=== PATIENT | male | born 1955 | race Caucasian/White ===

== ENCOUNTER → 2017-06-20 08:51 | Outpatient (CLI) | payer OTHER, SELFPAY ==
[2017-06-20 10:10] LABS: Absolute Lymphocyte Count 1.41 X10^3/ul (0.83-4.51); Basophil# 0.04 X10^3/uL; Basophil% 0.7 % (0-1); Color, Urine Yellow (Yellow); Eosinophil# 0.54 X10^3/uL; Eosinophils% 9.8 % (0-5); Glucose, Dipstick Normal (Normal); Hematocrit 48.5 % (40-54); Hemoglobin 16.2 g/dl (13.0-16.5); Ketone-Dipstick Negative (Negative); Leukocyte Esterase-Dipstick 25 /ul (Negative); Lymphocyte # 1.41 X10^3/ul (4.0); Lymphocyte % 25.5 % (19-41); Mean Corp Hgb Conc 33.4 g/gl (32-36); Mean Corpuscular Hgb 29.8 pg (27.0-32.0); Mean Corpuscular Volume 89.3 fL (80-94); Mean Platelet Vol. 11.3 fl (6.2-12.0); Monocyte# 0.57 X10^3/uL; Monocyte% 10.3 % (0-10); Neutrophil # 2.97 X10^3/uL (2.7-7.7); Neutrophil % 53.7 % (47-70); Nitrite-Dipstick Negative (Negative); Occult Blood-Urine Negative /ul (Negative); Platelet Count 174 K/mm3 (150-450); Protein-Dipstick Negative (Negative); RBC Distribution Width CV 13.1 % (11.6-14.6); RBC Distribution Width SD 42.6 fl (35.1-43.9); Red Blood Count 5.43 M/mm3 (4.6-6.2); Urine Bilirubin Dipstick Negative (Negative); Urine Clarity Clear (Clear); Urine Urobilinogen Normal (Normal); White Blood Count 5.5 K/mm3 (4.4-11.0)
[2017-06-20 10:11] LABS: POSITIVE COUNT NO; POSITIVE DIFFERENTIAL NO; POSITIVE MORPHOLOGY NO
[2017-06-20 10:19] LABS: Erythrocyte Sedimentation Rate 2 mm/hr (0-20)
[2017-06-20 10:39] LABS: ALB/GLOB Ratio 1.2 RATIO (0.9-2.4); AST(SGOT) 20 U/L (15-37); Alanine Aminotransfer ALT/SGPT 43 U/L (16-61); Alkaline Phosphatase 84 U/L (45-117); Anion Gap 6 (5-15); BUN 13 mg/dL (7-18); CRP < 2.90 mg/L (0.0-3.0); Calcium,Total 8.6 mg/dL (8.5-10.1); Chloride 105 mmol/L (98-107); Cholesterol 156 mg/dL (200); EST Glomerular Filtration Rate 81 mL/min (>60); Est Glom Filt Rate - Afr Amer 98 mL/min (>60); Globulin 3.4 g/dL (2.2-4.2); Glucose 82 mg/dL (74-106); High Density Lipoprotein 36 mg/dL; PSA,Total - Annual Screen 2.39 ng/mL (0.00-4.00); Potassium 4.1 mmol/L (3.5-5.1); Protein, Total 7.4 g/dL (6.4-8.2); Sodium Level 140 mmol/L (136-145); Thyroid Stim Hormone (TSH) 1.12 uIU/mL (0.358-3.74); Triglycerides 115 mg/dL; Very Low Density Lipoprotein 23 mg/dL (5-40)
== END ==
PROVIDERS: Visit Provider Internal Medicine Rheumatology
DX: Z00.00 Encounter for general adult medical examination without abnormal findings (principal); E03.9 Hypothyroidism, unspecified; E78.00 Pure hypercholesterolemia, unspecified; M06.00 Rheumatoid arthritis without rheumatoid factor, unspecified site; Z12.5 Encounter for screening for malignant neoplasm of prostate
CPT/HCPCS: 36415; 80053; 80061; 81002; 84153; 84443; 85025; 85652; 86140; G0103

== ENCOUNTER → 2018-04-17 08:47 | Outpatient (CLI) | payer OTHER, SELFPAY ==
[2018-04-17 10:55] LABS: AST(SGOT) 23 U/L (15-37); Alanine Aminotransfer ALT/SGPT 41 U/L (16-61); Albumin, Serum 4.1 g/dL (3.2-5.0); Alkaline Phosphatase 78 U/L (45-117); Bilirubin, Direct 0.17 mg/dL (0.00-0.30); Cholesterol 177 mg/dL (200); Globulin 3.4 g/dL (2.2-4.2); High Density Lipoprotein 40 mg/dL; Protein, Total 7.5 g/dL (6.4-8.2); Thyroid Stim Hormone (TSH) 1.31 uIU/mL (0.358-3.74); Triglycerides 117 mg/dL; Very Low Density Lipoprotein 23 mg/dL (5-40)
--- OUTSIDE RECORDS SUMMARY | 2018-06-03 02:09 | XMS RPT_ITS ---
:1955 Author Organization [facility] Care Team Providers Name Role Phone ERNESTO GARCÍA Attending Unavailable ALIX THORNE Primary Care Unavailable Alix Thorne Attending Unavailable Alix Thorne Referring Unavailable Alix Thorne Primary Care Unavailable ERNESTO GARCÍA Attending Unavailable ERNESTO GARCÍA Referring Unavailable Alix Thorne Primary Care Unavailable PROBLEMS PROBLEMS No Problem Records FoundPROCEDURES PROCEDURES No Procedure Records FoundRESULTS RESULTS LIVER PROFILE Collected: 04/17/2018 Status: F Source: DEEPALI 9:04 AM [facility] REPOSITORY TYPE CODE TESTS RESULT OUT OF RANGE REFERENCE UNITS LAB L501.1500 6.4-8.2 g/dL Normal T PROT 7.5 LAB L501.1800 3.2-5.0 g/dL Normal ALB 4.1 LAB L501.1950 2.2-4.2 g/dL Normal GLOB 3.4 LAB L501.4100 15-37 U/L Normal AST 23 LAB L501.4305 45-117 U/L Normal ALK P 78 LAB L501.4405 16-61 U/L Normal ALT 41 LAB L501.4600 0.20-1.00 mg/dL Normal T BILI 0.80 LAB L501.4700 0.00-0.30 mg/dL Normal D BILI 0.17 Performed By: #### L500.3400, L500.4100, L501.9520 #### [facility] [address] [place], [address] LIPID PROFILE Collected: 04/17/2018 Status: F Source: DEEPALI 9:04 AM [facility] REPOSITORY TYPE CODE TESTS RESULT OUT OF RANGE REFERENCE UNITS LAB L501.4900 200 mg/dL Normal CHOL 177 Result Comment: <200 mg/dL Desirable 200-240 mg/dL Borderline >240 mg/dL High Risk LAB L501.5000 mg/dL Normal TRIG 117 Result Comment: The drugs N-Acetylcysteine and Metamizole may falsely depress this assay. Serum Triglycerides Reference Interval Normal <150 mg/dL Borderline high 150 - 199 mg/dL High 200 - 499 mg/dL Very High > or = 500 mg/dL LAB L501.6400 mg/dL Normal HDL 40 Result Comment: The drugs N-Acetylcysteine and Metamizole may falsely depress this assay. Reference Range HDL <40 mg/dL Low HDL Cholesterol HDL >or= 60 mg/dL High HDL Cholesterol LAB L501.6500 0-130 mg/dL Normal LDL 114 LAB L501.6600 5-40 mg/dL Normal VLDL 23 Performed By: #### L500.3400, L500.4100, L501.9520 #### [facility] [address] [place], [place], [id number] THYROID STIM HORMONE Collected: 04/17/2018 Status: F Source: DEEPALI (TSH) 9:04 AM [facility] REPOSITORY TYPE CODE TESTS RESULT OUT OF RANGE REFERENCE UNITS LAB L501.9520 0.358-3.74 uIU/mL Normal TSH 1.31 Performed By: #### L500.3400, L500.4100, L501.9520 #### [facility] [address] [place], [place], [address] CBC W/DIFF, AUTOMATED Collected: 06/20/2017 Status: F Source: DEEPALI 8:59 AM [facility] REPOSITORY TYPE CODE TESTS RESULT OUT OF RANGE REFERENCE UNITS LAB L100.1000 4.4-11.0 K/mm3 Normal WBC 5.5 LAB L100.1200 4.6-6.2 M/mm3 Normal RBC 5.43 LAB L100.1300 13.0-16.5 g/dl Normal HGB 16.2 LAB L100.1400 40-54 % Normal HCT 48.5 LAB L100.1500 80-94 fL Normal MCV 89.3 LAB L100.1600 27.0-32.0 pg Normal MCH 29.8 LAB L100.1700 32-36 g/gl Normal MCHC 33.4 LAB L100.1810 11.6-14.6 % Normal RDW CV 13.1 LAB L100.1820 35.1-43.9 fl Normal RDW SD 42.6 LAB L100.1900 150-450 K/mm3 Normal PLT 174 LAB L100.2000 6.2-12.0 fl Normal MPV 11.3 LAB L100.2100 47-70 % Normal NEUT% 53.7 LAB L100.2200 19-41 % Normal LY% 25.5 LAB L100.2300 0-10 % High MONO% 10.3 LAB L100.2400 0-5 % High EO% 9.8 LAB L100.2500 0-1 % Normal BASO% 0.7 LAB L100.2550 0.0-0.9 % Normal IM GRAN % 0.000 Result Comment: IG% - Immature Granulocytes (promyelocytes, myelocytes and metamyelocytes) > 1% indicates that a LEFT SHIFT is Present. LAB L100.2620 2.0-7.7 X10 3/uL Normal Absolute Neut 3.0 LAB L100.2720 0.83-4.51 X10 3/ul Normal Absolute Lymph 1.41 Performed By: #### L100.0100, L101.9900 #### [facility] [address] [place], [place], [id number] ERYTHROCYTE SED RATE Collected: 06/20/2017 Status: F Source: DEEPALI 8:59 AM [facility] REPOSITORY TYPE CODE TESTS RESULT OUT OF RANGE REFERENCE UNITS LAB L102.0000 0-20 mm/hr Normal SED RATE 2 Performed By: #### L100.0100, L101.9900 #### [facility] [address] [place], [address] URINALYSIS, ROUTINE Collected: 06/20/2017 Status: F Source: DEEPALI (DIPSTICK) 8:59 AM [facility] REPOSITORY Order Comment: How was Urine Obtained? CLEAN CATCH TYPE CODE TESTS RESULT OUT OF RANGE REFERENCE UNITS LAB L400.3000 Yellow COLOR Normal Yellow LAB L400.3050 Clear Normal CLARITY Clear LAB L400.3200 Normal mg/dl Normal GLUCOSE, UR Normal LAB L400.3300 Negative mg/dL Normal BILIRUBIN URINE Negative LAB L400.3400 Negative mg/dl Normal KETONE UR Negative LAB L400.3465 1.002-1.030 Normal SP.GR. DIPSTX 1.010 LAB L400.3550 5.0 - 8.0 pH UR Normal 6.0 LAB L400.3600 Negative mg/dl PROT Normal DIPSTX Negative LAB L400.3700 Normal mg/dl Normal UROBILI Normal LAB L400.3750 Negative Normal NITRITE UR Negative LAB L400.3780 Negative /ul Normal OCCULT BLOOD-UR Negative LAB L400.3800 Negative /ul High LEUK 25 ESTERASE Performed By: #### L400.2010 #### [facility] [address] [place], [address] COMPREHENSIVE METABOLIC Collected: 06/20/2017 Status: F Source: DEEPALI PROFIL 8:59 AM [facility] REPOSITORY TYPE CODE TESTS RESULT OUT OF RANGE REFERENCE UNITS LAB L501.0100 74-106 mg/dL Normal GLU 82 Result Comment: Please note revised GLUCOSE reference range effective 2017. LAB L501.1000 7-18 mg/dL Normal BUN 13 LAB L501.1100 0.70-1.30 mg/dL Normal CREAT,SERUM 1.00 Result Comment: The validity of the calculated GFR AND GFRAA in patients over 70 years has not been determined. Clinical correlation is essential. LAB L501.1110 >60 mL/min Normal EST GFR 81 Result Comment: Non- GFR Calc LAB L501.1115 >60 mL/min Normal EST GFR - AA 98 Result Comment: GFR Calc LAB L501.1300 10-20 RATIO Normal BUN/CRE 13.0 LAB L501.1500 6.4-8.2 g/dL T Normal PROT 7.4 LAB L501.1800 3.2-5.0 g/dL Normal ALB 4.0 LAB L501.1950 2.2-4.2 g/dL Normal GLOB 3.4 LAB L501.2000 0.9-2.4 RATIO Normal A/G 1.2 LAB L501.2200 8.5-10.1 mg/dL CA Normal 8.6 LAB L501.4100 15-37 U/L Normal AST 20 LAB L501.4305 45-117 U/L Normal ALK P 84 LAB L501.4405 16-61 U/L Normal ALT 43 Result Comment: Please note revised ALT reference range effective 2017. LAB L501.4600 0.20-1.00 mg/dL Normal T BILI 0.60 LAB L501.5300 136-145 mmol/L Normal NA 140 LAB L501.5600 3.5-5.1 mmol/L Normal K 4.1 LAB L501.5900 98-107 mmol/L Normal CL 105 LAB L501.6100 21.0-32.0 mmol/L Normal CO2 29.0 LAB L501.6200 5-15 Normal GAP 6 Performed By: #### L500.4050, L500.4100, L501.6710, L501.9520, L501.9910 #### [facility] [address] [place], [address] LIPID PROFILE Collected: 06/20/2017 Status: F Source: BARROW 8:59 AM [facility] REPOSITORY TYPE CODE TESTS RESULT OUT OF RANGE REFERENCE UNITS LAB L501.4900 200 mg/dL Normal CHOL 156 Result Comment: <200 mg/dL Desirable 200-240 mg/dL Borderline >240 mg/dL High Risk LAB L501.5000 mg/dL Normal TRIG 115 Result Comment: The drugs N-Acetylcysteine and Metamizole may falsely depress this assay. Serum Triglycerides Reference Interval Normal <150 mg/dL Borderline high 150 - 199 mg/dL High 200 - 499 mg/dL Very High > or = 500 mg/dL LAB L501.6400 mg/dL Low HDL 36 Result Comment: The drugs N-Acetylcysteine and Metamizole may falsely depress this assay. Reference Range HDL <40 mg/dL Low HDL Cholesterol HDL >or= 60 mg/dL High HDL Cholesterol LAB L501.6500 0-130 mg/dL Normal LDL 97 LAB L501.6600 5-40 mg/dL Normal VLDL 23 Performed By: #### L500.4050, L500.4100, L501.6710, L501.9520, L501.9910 #### [facility] [address] [place], [address] CRP Collected: 06/20/2017 Status: F Source: DEEPALI 8:59 AM [facility] REPOSITORY TYPE CODE TESTS RESULT OUT OF RANGE REFERENCE UNITS LAB L501.6710 0.0-3.0 mg/L Normal < 2.90 C-REACTIVE PROT Result Comment: C-Reactive Protein (CRP) provides useful information for the diagnosis, therapy and monitoring of inflammatory processes and associated diseases. For the evaluation of Relative Risk for Cardiovascular Disease, a High Sensitivity CRP (HSCRP) should be ordered. Performed By: #### L500.4050, L500.4100, L501.6710, L501.9520, L501.9910 #### [facility] [address] [place], [place], [id number] THYROID STIM HORMONE Collected: 06/20/2017 Status: F Source: DEEPALI (TSH) 8:59 AM [facility] REPOSITORY TYPE CODE TESTS RESULT OUT OF RANGE REFERENCE UNITS LAB L501.9520 0.358-3.74 uIU/mL Normal TSH 1.12 Performed By: #### L500.4050, L500.4100, L501.6710, L501.9520, L501.9910 #### [facility] [address] [place], [place], [address] PSA,TOTAL - ANNUAL Collected: 06/20/2017 Status: F Source: DEEPALI SCREEN 8:59 AM [facility] REPOSITORY TYPE CODE TESTS RESULT OUT OF RANGE REFERENCE UNITS LAB L501.9910 0.00-4.00 ng/mL Normal PSA,TOT 2.39 SCREEN Result Comment: This test was performed using the TPSA assay method for the [employer] chemistry system. Values obtained with different assay methods cannot be used interchangably. When changing PSA assays in the course of monitoring a patient, additional sequential testing should be carried out to confirm baseline values. Performed By: #### L500.4050, L500.4100, L501.6710, L501.9520, L501.9910 #### [facility] [address] [place], [address] ALLERGIES ALLERGIES DATE TYPE / CODE NAME / CODE REACTION SEVERITY SOURCE 06/06/2016 Drug No Known Unknown [facility] Allergy/416 Allergies/L41408 Hospital 916456(SNOM 0388(RXNORM) Repository ED CT) Drug NO KNOWN [facility] Class/08162 ALLERGIES Repository 1003(SNOMED CT) ENCOUNTERS ENCOUNTERS ADMIT/DISCHARGE ACCOUNT NUMBER ADMITTING ENCOUNTER LOCATION SOURCE CLASS 04/17/2018 [id number] Ambulatory General acute hospital ding:MTLAB Repository 02/07/2018/02/08/20 [id number] Ambulatory Building:[place] [address] [address] [address] R Repository 06/20/2017 [id number] Ambulatory General acute hospital ding:MTLAB Repository PAYERS PAYERS ENCOUNTER GUARANTOR PAYER SUBSCRIBER SOURCE 04/17/2018 NOELLE Oliva [id number] Primary NOELEL Randall [facility] Insurance:MEDICAL STENTZDOB: [address] [id number] Hospital [address]Pgs: (330) Number: Repository [phone] () [id number] Date:2356-79-30[address] [address]NK: 04/17/2018 Secondary NOT GIVENUNK [place] Insurance:SELF PAY [facility] Number: Effective Repository Date:2018-04-17 02/07/2018 NOELLE STENTZDOB: Primary NOELLE STENTZDOB: [facility] [id number] W Insurance:[facility] [id number] Three Repository [address] Number: [address] [place] [address] [id number] [address] [place] [id number]: [phone]) Date:3335-71-12[address] [address]Zta: () [address], [place] [phone] () [phone]: 06/20/2017 Noelle DumontzJudson Primary Noelle Randall [address] Insurance:MEDICAL StentzDOB: [facility] [address]Nwk: [facility] [id number] Hospital [phone] Number: Repository -9 () [id number] Date:3896-01-98FR [address] [place] [phone]: 06/20/2017 Secondary NOT GIVENNICOLE [place] Insurance:SELF PAY [facility] Number: Effective Repository Date:2017-06-20
== END ==
PROVIDERS: Referring Provider Family Medicine; Visit Provider Family Medicine
DX: E78.00 Pure hypercholesterolemia, unspecified (principal); E03.9 Hypothyroidism, unspecified
CPT/HCPCS: 36415; 80061; 80076; 84443

== ENCOUNTER → 2018-07-31 08:50 | Outpatient (CLI) | payer OTHER, SELFPAY ==
[2018-07-31 09:58] LABS: Color, Urine Yellow (Yellow); Glucose, Dipstick Normal (Normal); Ketone-Dipstick Negative (Negative); Leukocyte Esterase-Dipstick Negative /ul (Negative); Nitrite-Dipstick Negative (Negative); Occult Blood-Urine Negative /ul (Negative); Protein-Dipstick Negative (Negative); Urine Bilirubin Dipstick Negative (Negative); Urine Clarity Clear (Clear); Urine Urobilinogen Normal (Normal); Urine pH 6.5 (5.0 - 8.0)
[2018-07-31 10:12] LABS: Absolute Lymphocyte Count 1.33 X10^3/ul (0.83-4.51); Basophil# 0.03 X10^3/uL; Basophil% 0.5 % (0-1); Eosinophil# 0.39 X10^3/uL; Eosinophils% 7.1 % (0-5); Hematocrit 47.2 % (40-54); Hemoglobin 15.7 g/dl (13.0-16.5); Lymphocyte # 1.33 X10^3/ul (4.0); Lymphocyte % 24.1 % (19-41); Mean Corp Hgb Conc 33.3 g/gl (32-36); Mean Corpuscular Volume 90.1 fL (80-94); Mean Platelet Vol. 10.7 fl (6.2-12.0); Monocyte# 0.75 X10^3/uL; Monocyte% 13.6 % (0-10); Neutrophil # 3.02 X10^3/uL (2.7-7.7); Neutrophil % 54.7 % (47-70); Platelet Count 180 K/mm3 (150-450); RBC Distribution Width CV 12.8 % (11.6-14.6); RBC Distribution Width SD 41.7 fl (35.1-43.9); Red Blood Count 5.24 M/mm3 (4.6-6.2); White Blood Count 5.5 K/mm3 (4.4-11.0)
[2018-07-31 10:18] LABS: POSITIVE COUNT NO; POSITIVE DIFFERENTIAL NO; POSITIVE MORPHOLOGY NO
[2018-07-31 10:30] LABS: ALB/GLOB Ratio 1.2 RATIO (0.9-2.4); AST(SGOT) 24 U/L (15-37); Alanine Aminotransfer ALT/SGPT 39 U/L (16-61); Albumin, Serum 3.9 g/dL (3.2-5.0); Alkaline Phosphatase 68 U/L (45-117); Anion Gap 3 (5-15); BUN 13 mg/dL (7-18); BUN/Creat Ratio 13.3 RATIO (10-20); Calcium,Total 8.2 mg/dL (8.5-10.1); Chloride 108 mmol/L (98-107); Cholesterol 181 mg/dL (200); Creatinine, Serum 0.98 mg/dL (0.70-1.30); EST Glomerular Filtration Rate 83 mL/min (>60); Est Glom Filt Rate - Afr Amer 100 mL/min (>60); Globulin 3.2 g/dL (2.2-4.2); Glucose 76 mg/dL (74-106); High Density Lipoprotein 39 mg/dL; PSA,Total - Annual Screen 2.11 ng/mL (0.00-4.00); Potassium 3.9 mmol/L (3.5-5.1); Protein, Total 7.1 g/dL (6.4-8.2); Sodium Level 141 mmol/L (136-145); Thyroid Stim Hormone (TSH) 0.78 uIU/mL (0.358-3.74); Triglycerides 86 mg/dL; Very Low Density Lipoprotein 17 mg/dL (5-40)
== END ==
PROVIDERS: Referring Provider Family Medicine; Visit Provider Family Medicine
DX: Z00.00 Encounter for general adult medical examination without abnormal findings (principal); E78.00 Pure hypercholesterolemia, unspecified; E03.9 Hypothyroidism, unspecified; Z12.5 Encounter for screening for malignant neoplasm of prostate
CPT/HCPCS: 36415; 80053; 80061; 81002; 84153; 84443; 85025; G0103

== ENCOUNTER → 2019-01-30 08:40 | Outpatient (CLI) | payer OTHER, SELFPAY ==
[2016-06-06 19:52] VITALS: BMI 29.6
[2019-01-30 10:21] LABS: AST(SGOT) 23 U/L (15-37); Alanine Aminotransfer ALT/SGPT 42 U/L (16-61); Albumin, Serum 3.9 g/dL (3.2-5.0); Alkaline Phosphatase 71 U/L (45-117); Bilirubin, Direct 0.18 mg/dL (0.00-0.30); Cholesterol 203 mg/dL (200); Globulin 3.4 g/dL (2.2-4.2); High Density Lipoprotein 42 mg/dL; Protein, Total 7.3 g/dL (6.4-8.2); Thyroid Stim Hormone (TSH) 1.45 uIU/mL (0.358-3.74); Triglycerides 130 mg/dL; Very Low Density Lipoprotein 26 mg/dL (5-40)
== END ==
PROVIDERS: Referring Provider Family Medicine; Visit Provider Family Medicine
DX: E03.9 Hypothyroidism, unspecified (principal); E78.00 Pure hypercholesterolemia, unspecified
CPT/HCPCS: 36415; 80061; 80076; 84443

== ENCOUNTER → 2019-12-28 07:24 | Outpatient (CLI) | payer OTHER, SELFPAY ==
[2016-06-06 19:52] VITALS: BMI 29.6
[2019-12-28 08:17] LABS: Absolute Lymphocyte Count 1.58 X10^3/uL (0.83-4.51); Absolute Neutrophil Count 2.7 X10^3/uL (2.0-7.7); Basophil# 0.05 X10^3/uL; Basophil% 0.9 % (0-1); Eosinophil# 0.27 X10^3/uL; Hematocrit 48.8 % (40-54); Hemoglobin 16.4 g/dL (13.0-16.5); Lymphocyte # 1.58 X10^3/ul (4.0); Lymphocyte % 29.5 % (19-41); Mean Corp Hgb Conc 33.6 g/dL (32-36); Mean Corpuscular Volume 89.2 fL (80-94); Monocyte# 0.74 X10^3/uL; Monocyte% 13.8 % (0-10); NRBC Flagged by Analyzer 0 % (0-5); Neutrophil % 50.4 % (47-70); Platelet Count 197 K/mm3 (150-450); RBC Distribution Width CV 12.4 % (11.6-14.6); RBC Distribution Width SD 40.1 fl (35.1-43.9); Red Blood Count 5.47 M/mm3 (4.6-6.2); White Blood Count 5.4 K/mm3 (4.4-11.0)
[2019-12-28 08:55] LABS: AST(SGOT) 23 U/L (15-37); Alanine Aminotransfer ALT/SGPT 37 U/L (16-61); Alkaline Phosphatase 71 U/L (45-117); Bilirubin, Direct 0.22 mg/dL (0.00-0.30); Cholesterol 186 mg/dL (200); Globulin 3.6 g/dL (2.2-4.2); High Density Lipoprotein 36 mg/dL; PSA,Total - Annual Screen 2.71 ng/mL (0.00-4.00); Protein, Total 7.6 g/dL (6.4-8.2); Thyroid Stim Hormone (TSH) 1.78 uIU/mL (0.358-3.74); Triglycerides 143 mg/dL; Very Low Density Lipoprotein 29 mg/dL (5-40)
== END ==
PROVIDERS: Referring Provider Family Medicine; Visit Provider Family Medicine
DX: Z00.00 Encounter for general adult medical examination without abnormal findings (principal); E03.9 Hypothyroidism, unspecified; Z12.5 Encounter for screening for malignant neoplasm of prostate; E78.00 Pure hypercholesterolemia, unspecified
CPT/HCPCS: 36415; 80061; 80076; 84153; 84443; 85025; G0103

== ENCOUNTER → 2020-07-19 07:14 | Outpatient (CLI) | payer OTHER, SELFPAY ==
[2020-07-19 08:00] LABS: Erythrocyte Sedimentation Rate < 1 mm/hr (0-20)
[2020-07-19 08:03] LABS: Absolute Lymphocyte Count 1.84 X10^3/uL (0.83-4.51); Absolute Neutrophil Count 2.1 X10^3/uL (2.0-7.7); Basophil# 0.07 X10^3/uL; Basophil% 1.4 % (0-1); Eosinophil# 0.34 X10^3/uL; Eosinophils% 6.7 % (0-5); Hemoglobin 16.8 g/dL (13.0-16.5); Lymphocyte # 1.84 X10^3/ul (4.0); Lymphocyte % 36.2 % (19-41); Mean Corp Hgb Conc 33.6 g/dL (32-36); Mean Corpuscular Hgb 29.9 pg (27.0-32.0); Mean Platelet Vol. 11.4 fl (6.2-12.0); Monocyte# 0.78 X10^3/uL; Monocyte% 15.4 % (0-10); NRBC Flagged by Analyzer 0 % (0-5); Neutrophil # 2.05 X10^3/uL (2.7-7.7); Neutrophil % 40.3 % (47-70); Platelet Count 194 K/mm3 (150-450); RBC Distribution Width CV 12.5 % (11.6-14.6); RBC Distribution Width SD 40.8 fl (35.1-43.9); Red Blood Count 5.62 M/mm3 (4.6-6.2); White Blood Count 5.1 K/mm3 (4.4-11.0)
[2020-07-19 08:53] LABS: ALB/GLOB Ratio 1.1 RATIO (0.9-2.4); AST(SGOT) 24 U/L (15-37); Alanine Aminotransfer ALT/SGPT 36 U/L (16-61); Albumin, Serum 3.9 g/dL (3.2-5.0); Alkaline Phosphatase 76 U/L (45-117); Anion Gap 3 (5-15); BUN 15 mg/dL (7-18); BUN/Creat Ratio 14.9 RATIO (10-20); CRP < 2.90 mg/L (0.0-3.0); Calcium,Total 8.7 mg/dL (8.5-10.1); Chloride 109 mmol/L (98-107); Cholesterol 174 mg/dL (200); Creatinine, Serum 1.01 mg/dL (0.70-1.30); EST Glomerular Filtration Rate 79 mL/min (>60); Est Glom Filt Rate - Afr Amer 96 mL/min (>60); Globulin 3.5 g/dL (2.2-4.2); Glucose 78 mg/dL (74-106); High Density Lipoprotein 40 mg/dL; Potassium 3.8 mmol/L (3.5-5.1); Protein, Total 7.4 g/dL (6.4-8.2); Rheumatoid Factor < 10.0 IU/mL (<15); Sodium Level 142 mmol/L (136-145); Thyroid Stim Hormone (TSH) 1.49 uIU/mL (0.358-3.74); Triglycerides 94 mg/dL; Very Low Density Lipoprotein 19 mg/dL (5-40)
[2020-07-19 09:22] LABS: Hepatitis B Surface Antibody Non-Reactive; Hepatitis B Surface Antigen Non-Reactive (Nonreactive); Hepatitis C Antibody Non-Reactive (Nonreactive)
[2020-07-20 15:31] LABS: ANTINUCLEAR ANTIBODIES DIRECT Negative (Negative)
[2020-07-21 07:32] LABS: CCP IgG Antibodies 4 units (0-19)
== END ==
PROVIDERS: PCP Family Medicine; Referring Provider Family Medicine; Visit Provider Family Medicine
DX: M06.4 Inflammatory polyarthropathy (principal); M19.041 Primary osteoarthritis, right hand; M47.892 Other spondylosis, cervical region; M21.41 Flat foot [pes planus] (acquired), right foot; G24.3 Spasmodic torticollis; G25.0 Essential tremor; F41.9 Anxiety disorder, unspecified; E03.9 Hypothyroidism, unspecified; E78.5 Hyperlipidemia, unspecified
CPT/HCPCS: 36415; 80053; 80061; 84443; 85025; 85652; 86038; 86140; 86200; 86431; 86706; 86803; 87340

== ENCOUNTER → 2020-10-25 07:06 | Outpatient (CLI) | payer OTHER, SELFPAY ==
[2016-06-06 19:52] VITALS: BMI 29.6
[2020-10-25 08:15] LABS: Erythrocyte Sedimentation Rate < 1 mm/hr (0-20)
[2020-10-25 08:17] LABS: Absolute Lymphocyte Count 1.53 X10^3/uL (0.83-4.51); Absolute Neutrophil Count 2.5 X10^3/uL (2.0-7.7); Basophil# 0.04 X10^3/uL; Basophil% 0.8 % (0-1); Eosinophil# 0.33 X10^3/uL; Eosinophils% 6.5 % (0-5); Hematocrit 49.3 % (40-54); Hemoglobin 16.3 g/dL (13.0-16.5); Lymphocyte # 1.53 X10^3/ul (0.83-4.51); Lymphocyte % 30.2 % (19-41); Mean Corp Hgb Conc 33.1 g/dL (32-36); Mean Corpuscular Volume 90.6 fL (80-94); Mean Platelet Vol. 11.7 fl (6.2-12.0); Monocyte# 0.62 X10^3/uL; Monocyte% 12.3 % (0-10); NRBC Flagged by Analyzer 0 % (0-5); Neutrophil # 2.53 X10^3/uL (2.7-7.7); Platelet Count 219 K/mm3 (150-450); RBC Distribution Width CV 12.6 % (11.6-14.6); RBC Distribution Width SD 41.1 fl (35.1-43.9); Red Blood Count 5.44 M/mm3 (4.6-6.2); White Blood Count 5.1 K/mm3 (4.4-11.0)
[2020-10-25 08:44] LABS: ALB/GLOB Ratio 1.2 RATIO (0.9-2.4); AST(SGOT) 19 U/L (15-37); Alanine Aminotransfer ALT/SGPT 34 U/L (16-61); Albumin, Serum 3.8 g/dL (3.2-5.0); Alkaline Phosphatase 78 U/L (45-117); Anion Gap 5 (5-15); BUN 17 mg/dL (7-18); BUN/Creat Ratio 17.9 RATIO (10-20); CRP < 2.90 mg/L (0.0-3.0); Calcium,Total 8.8 mg/dL (8.5-10.1); Chloride 106 mmol/L (98-107); Creatinine, Serum 0.95 mg/dL (0.70-1.30); EST Glomerular Filtration Rate 85 mL/min (>60); Est Glom Filt Rate - Afr Amer 103 mL/min (>60); Globulin 3.3 g/dL (2.2-4.2); Glucose 73 mg/dL (74-106); Potassium 3.8 mmol/L (3.5-5.1); Protein, Total 7.1 g/dL (6.4-8.2); Rheumatoid Factor < 10.0 IU/mL (<15); Sodium Level 140 mmol/L (136-145)
[2020-10-25 09:11] LABS: Hepatitis B Surface Antibody Non-Reactive; Hepatitis B Surface Antigen Non-Reactive (Nonreactive); Hepatitis C Antibody Non-Reactive (Nonreactive)
[2020-10-26 21:12] LABS: ANTINUCLEAR ANTIBODIES DIRECT Negative (Negative)
[2020-10-27 14:27] LABS: CCP IgG Antibodies 6 units (0-19)
== END ==
PROVIDERS: PCP Family Medicine; Referring Provider Internal Medicine Rheumatology; Visit Provider Internal Medicine Rheumatology
DX: M06.4 Inflammatory polyarthropathy (principal); M19.041 Primary osteoarthritis, right hand; M47.892 Other spondylosis, cervical region; M21.41 Flat foot [pes planus] (acquired), right foot; G24.3 Spasmodic torticollis; G25.0 Essential tremor; F41.9 Anxiety disorder, unspecified; E03.9 Hypothyroidism, unspecified; E78.5 Hyperlipidemia, unspecified
CPT/HCPCS: 36415; 80053; 85025; 85652; 86038; 86140; 86200; 86431; 86706; 86803; 87340

== ENCOUNTER → 2021-03-23 07:03 | Outpatient (CLI) | payer OTHER, SELFPAY ==
[2021-03-23 08:33] LABS: AST(SGOT) 26 U/L (15-37); Alanine Aminotransfer ALT/SGPT 41 U/L (16-61); Albumin, Serum 3.9 g/dL (3.2-5.0); Alkaline Phosphatase 74 U/L (45-117); Bilirubin, Direct 0.19 mg/dL (0.00-0.30); Cholesterol 193 mg/dL (200); Globulin 3.7 g/dL (2.2-4.2); High Density Lipoprotein 39 mg/dL; Protein, Total 7.6 g/dL (6.4-8.2); Thyroid Stim Hormone (TSH) 1.99 uIU/mL (0.358-3.74); Triglycerides 154 mg/dL; Very Low Density Lipoprotein 31 mg/dL (5-40)
== END ==
PROVIDERS: PCP Family Medicine; Visit Provider Family Medicine
DX: E78.00 Pure hypercholesterolemia, unspecified (principal); E03.9 Hypothyroidism, unspecified
CPT/HCPCS: 36415; 80061; 80076; 84443

== ENCOUNTER 2021-06-20 15:40 | Outpatient (CLI) | payer MEDICARE, SELFPAY ==
[2021-06-20 17:57] LABS: Absolute Lymphocyte Count 1.36 X10^3/uL (0.83-4.51); Absolute Neutrophil Count 3.6 X10^3/uL (2.0-7.7); Basophil# 0.04 X10^3/uL; Basophil% 0.7 % (0-1); Eosinophil# 0.14 X10^3/uL; Eosinophils% 2.4 % (0-5); Hematocrit 50.3 % (40-54); Hemoglobin 17.2 g/dL (13.0-16.5); Lymphocyte # 1.36 X10^3/ul (0.83-4.51); Lymphocyte % 23.1 % (19-41); Mean Corp Hgb Conc 34.2 g/dL (32-36); Mean Corpuscular Hgb 30.3 pg (27.0-32.0); Mean Corpuscular Volume 88.6 fL (80-94); Mean Platelet Vol. 11.3 fl (6.2-12.0); Monocyte# 0.74 X10^3/uL; Monocyte% 12.5 % (0-10); NRBC Flagged by Analyzer 0 % (0-5); Neutrophil # 3.59 X10^3/uL (2.7-7.7); Neutrophil % 60.8 % (47-70); Platelet Count 240 K/mm3 (150-450); RBC Distribution Width CV 12.1 % (11.6-14.6); RBC Distribution Width SD 39.4 fl (35.1-43.9); Red Blood Count 5.68 M/mm3 (4.6-6.2); White Blood Count 5.9 K/mm3 (4.4-11.0)
[2021-06-20 18:20] LABS: ALB/GLOB Ratio 1.1 RATIO (0.9-2.4); AST(SGOT) 27 U/L (15-37); Alanine Aminotransfer ALT/SGPT 42 U/L (16-61); Albumin, Serum 4.1 g/dL (3.2-5.0); Alkaline Phosphatase 88 U/L (45-117); Anion Gap 6 (5-15); BUN 18 mg/dL (7-18); BUN/Creat Ratio 19.9 RATIO (10-20); Calcium,Total 9.1 mg/dL (8.5-10.1); Chloride 104 mmol/L (98-107); EST Glomerular Filtration Rate 90 mL/min (>60); Est Glom Filt Rate - Afr Amer 108 mL/min (>60); Globulin 3.7 g/dL (2.2-4.2); Glucose 82 mg/dL (74-106); Protein, Total 7.8 g/dL (6.4-8.2); Sodium Level 139 mmol/L (136-145)
== END 2021-06-20 23:59 | disposition home or self-care (01) ==
LOC: MTLAB 15:43
PROVIDERS: PCP Family Medicine; Referring Provider Internal Medicine Rheumatology; Visit Provider Internal Medicine Rheumatology
DX: M06.4 Inflammatory polyarthropathy (principal); M19.041 Primary osteoarthritis, right hand; M47.892 Other spondylosis, cervical region; M21.41 Flat foot [pes planus] (acquired), right foot; G24.3 Spasmodic torticollis; G25.0 Essential tremor; F41.9 Anxiety disorder, unspecified; E03.9 Hypothyroidism, unspecified; E78.5 Hyperlipidemia, unspecified; L81.7 Pigmented purpuric dermatosis; Z79.899 Other long term (current) drug therapy
CPT/HCPCS: 36415; 80053; 85025

== ENCOUNTER → 2021-08-28 | Outpatient (CLI) | payer MEDICARE, SELFPAY ==
[2021-08-28 07:21] LABS: Absolute Lymphocyte Count 1.79 X10^3/uL (0.83-4.51); Absolute Neutrophil Count 2.8 X10^3/uL (2.0-7.7); Basophil# 0.06 X10^3/uL; Eosinophil# 0.37 X10^3/uL; Eosinophils% 6.3 % (0-5); Hematocrit 48.7 % (40-54); Lymphocyte # 1.79 X10^3/ul (0.83-4.51); Lymphocyte % 30.3 % (19-41); Mean Corp Hgb Conc 32.9 g/dL (32-36); Mean Corpuscular Hgb 28.9 pg (27.0-32.0); Mean Corpuscular Volume 88.1 fL (80-94); Mean Platelet Vol. 10.2 fl (6.2-12.0); Monocyte# 0.84 X10^3/uL; Monocyte% 14.2 % (0-10); NRBC Flagged by Analyzer 0 % (0-5); Neutrophil # 2.83 X10^3/uL (2.7-7.7); Platelet Count 204 K/mm3 (150-450); RBC Distribution Width CV 12.2 % (11.6-14.6); RBC Distribution Width SD 39.8 fl (35.1-43.9); Red Blood Count 5.53 M/mm3 (4.6-6.2); White Blood Count 5.9 K/mm3 (4.4-11.0)
[2021-08-28 07:56] LABS: ALB/GLOB Ratio 1.2 RATIO (0.9-2.4); AST(SGOT) 24 U/L (15-37); Alanine Aminotransfer ALT/SGPT 39 U/L (16-61); Albumin, Serum 3.9 g/dL (3.2-5.0); Alkaline Phosphatase 75 U/L (45-117); Anion Gap 3 (5-15); BUN 13 mg/dL (7-18); BUN/Creat Ratio 13.3 RATIO (10-20); Calcium,Total 8.5 mg/dL (8.5-10.1); Chloride 107 mmol/L (98-107); Cholesterol 189 mg/dL (200); Creatinine, Serum 0.98 mg/dL (0.70-1.30); EST Glomerular Filtration Rate 82 mL/min (>60); Est Glom Filt Rate - Afr Amer 99 mL/min (>60); Globulin 3.2 g/dL (2.2-4.2); Glucose 80 mg/dL (74-106); High Density Lipoprotein 38 mg/dL; PSA,Total - Annual Screen 3.47 ng/mL (0.00-4.00); Potassium 3.8 mmol/L (3.5-5.1); Protein, Total 7.1 g/dL (6.4-8.2); Sodium Level 139 mmol/L (136-145); Thyroid Stim Hormone (TSH) 1.81 uIU/mL (0.358-3.74); Triglycerides 166 mg/dL; Very Low Density Lipoprotein 33 mg/dL (5-40)
== END | disposition home or self-care (01) ==
LOC: LAB 07:05
PROVIDERS: PCP Family Medicine; Referring Provider Family Medicine; Visit Provider Family Medicine
DX: Z00.00 Encounter for general adult medical examination without abnormal findings (principal); Z13.9 Encounter for screening, unspecified; E78.00 Pure hypercholesterolemia, unspecified; E03.9 Hypothyroidism, unspecified; Z12.5 Encounter for screening for malignant neoplasm of prostate
CPT/HCPCS: 36415; 80053; 80061; 84153; 84443; 85025; G0103

== ENCOUNTER → 2022-01-09 | Outpatient (CLI) | payer MEDICARE, SELFPAY ==
[2022-01-09 08:38] LABS: Hematocrit 49.3 % (40-54); Hemoglobin 16.4 g/dL (13.0-16.5); Mean Corp Hgb Conc 33.3 g/dL (32-36); Mean Corpuscular Hgb 29.8 pg (27.0-32.0); Mean Corpuscular Volume 89.5 fL (80-94); Mean Platelet Vol. 10.9 fl (6.2-12.0); Platelet Count 210 K/mm3 (150-450); RBC Distribution Width CV 12.5 % (11.6-14.6); Red Blood Count 5.51 M/mm3 (4.6-6.2); White Blood Count 5.9 K/mm3 (4.4-11.0)
[2022-01-09 09:07] LABS: ALB/GLOB Ratio 1.1 RATIO (0.9-2.4); AST(SGOT) 20 U/L (15-37); Alanine Aminotransfer ALT/SGPT 39 U/L (16-61); Albumin, Serum 3.8 g/dL (3.2-5.0); Alkaline Phosphatase 74 U/L (45-117); Anion Gap 7 (5-15); BUN 15 mg/dL (7-18); BUN/Creat Ratio 14.3 RATIO (10-20); Calcium,Total 8.9 mg/dL (8.5-10.1); Chloride 105 mmol/L (98-107); Creatinine, Serum 1.05 mg/dL (0.70-1.30); EST Glomerular Filtration Rate 75 mL/min (>60); Est Glom Filt Rate - Afr Amer 91 mL/min (>60); Globulin 3.5 g/dL (2.2-4.2); Glucose 76 mg/dL (74-106); Potassium 4.4 mmol/L (3.5-5.1); Protein, Total 7.3 g/dL (6.4-8.2); Sodium Level 143 mmol/L (136-145)
[2022-01-10 08:19] LABS: Absolute Lymphocyte Count 1.79 X10^3/uL (0.83-4.51); Basophil# 0.08 X10^3/uL; Basophil% 1.3 % (0-1); Eosinophil# 0.41 X10^3/uL; Eosinophils% 6.7 % (0-5); Lymphocyte # 1.79 X10^3/ul (0.83-4.51); Lymphocyte % 29.3 % (19-41); Monocyte# 0.83 X10^3/uL; Monocyte% 13.6 % (0-10); NRBC Flagged by Analyzer 0 % (0-5); Neutrophil # 2.98 X10^3/uL (2.7-7.7); Neutrophil % 48.9 % (47-70)
== END | disposition home or self-care (01) ==
PROVIDERS: PCP Family Medicine; Referring Provider Internal Medicine Rheumatology; Visit Provider Internal Medicine Rheumatology
DX: M06.4 Inflammatory polyarthropathy (principal); Z79.899 Other long term (current) drug therapy; M19.041 Primary osteoarthritis, right hand; M47.892 Other spondylosis, cervical region; M21.41 Flat foot [pes planus] (acquired), right foot; G24.3 Spasmodic torticollis; G25.0 Essential tremor; F41.9 Anxiety disorder, unspecified; E03.9 Hypothyroidism, unspecified; E78.5 Hyperlipidemia, unspecified; L81.7 Pigmented purpuric dermatosis
CPT/HCPCS: 36415; 80053; 85025; 85027

== ENCOUNTER → 2022-07-02 | Outpatient (CLI) | payer MEDICARE, SELFPAY ==
[2022-07-02 07:45] LABS: Absolute Lymphocyte Count 1.72 X10^3/uL (0.83-4.51); Absolute Neutrophil Count 3.2 X10^3/uL (2.0-7.7); Basophil# 0.06 X10^3/uL; Eosinophil# 0.43 X10^3/uL; Hematocrit 48.9 % (40-54); Hemoglobin 16.7 g/dL (13.0-16.5); Lymphocyte # 1.72 X10^3/ul (0.83-4.51); Lymphocyte % 28.2 % (19-41); Mean Corp Hgb Conc 34.2 g/dL (32-36); Mean Corpuscular Volume 87.9 fL (80-94); Mean Platelet Vol. 10.2 fl (6.2-12.0); Monocyte# 0.69 X10^3/uL; Monocyte% 11.3 % (0-10); NRBC Flagged by Analyzer 0 % (0-5); Neutrophil % 52.3 % (47-70); Platelet Count 216 K/mm3 (150-450); RBC Distribution Width CV 12.5 % (11.6-14.6); RBC Distribution Width SD 40.9 fl (35.1-43.9); Red Blood Count 5.56 M/mm3 (4.6-6.2); White Blood Count 6.1 K/mm3 (4.4-11.0)
[2022-07-02 08:21] LABS: ALB/GLOB Ratio 1.1 RATIO (0.9-2.4); AST(SGOT) 24 U/L (15-37); Alanine Aminotransfer ALT/SGPT 45 U/L (16-61); Albumin, Serum 3.9 g/dL (3.2-5.0); Alkaline Phosphatase 85 U/L (45-117); Anion Gap 6 (5-15); BUN 23 mg/dL (7-18); BUN/Creat Ratio 22.5 RATIO (10-20); Calcium,Total 9.4 mg/dL (8.5-10.1); Chloride 106 mmol/L (98-107); Creatinine, Serum 1.02 mg/dL (0.70-1.30); EST Glomerular Filtration Rate 78 mL/min (>60); Est Glom Filt Rate - Afr Amer 94 mL/min (>60); Globulin 3.6 g/dL (2.2-4.2); Glucose 72 mg/dL (74-106); Potassium 3.9 mmol/L (3.5-5.1); Protein, Total 7.5 g/dL (6.4-8.2); Sodium Level 143 mmol/L (136-145)
== END | disposition home or self-care (01) ==
LOC: LAB 07:08
PROVIDERS: PCP Family Medicine; Referring Provider Internal Medicine Rheumatology; Visit Provider Internal Medicine Rheumatology
DX: M06.4 Inflammatory polyarthropathy (principal); Z79.899 Other long term (current) drug therapy; M19.041 Primary osteoarthritis, right hand; M47.892 Other spondylosis, cervical region; M21.41 Flat foot [pes planus] (acquired), right foot; G24.3 Spasmodic torticollis; G25.0 Essential tremor; F41.9 Anxiety disorder, unspecified; E03.9 Hypothyroidism, unspecified; E78.5 Hyperlipidemia, unspecified; L81.7 Pigmented purpuric dermatosis
CPT/HCPCS: 36415; 80053; 85025

== ENCOUNTER → 2023-01-10 | Outpatient (CLI) | payer MEDICARE, SELFPAY ==
[2023-01-10 15:44] LABS: Absolute Lymphocyte Count 1.52 X10^3/uL (0.83-4.51); Absolute Neutrophil Count 3.6 X10^3/uL (2.0-7.7); Basophil# 0.04 X10^3/uL; Basophil% 0.7 % (0-1); Eosinophil# 0.13 X10^3/uL; Eosinophils% 2.1 % (0-5); Hematocrit 47.5 % (40-54); Hemoglobin 15.5 g/dL (13.0-16.5); Lymphocyte # 1.52 X10^3/ul (0.83-4.51); Lymphocyte % 24.8 % (19-41); Mean Corp Hgb Conc 32.6 g/dL (32-36); Mean Corpuscular Hgb 28.7 pg (27.0-32.0); Mean Corpuscular Volume 87.8 fL (80-94); Mean Platelet Vol. 9.7 fl (6.2-12.0); Monocyte# 0.83 X10^3/uL; Monocyte% 13.6 % (0-10); NRBC Flagged by Analyzer 0 % (0-5); Neutrophil # 3.58 X10^3/uL (2.7-7.7); Neutrophil % 58.5 % (47-70); Platelet Count 398 K/mm3 (150-450); RBC Distribution Width CV 12.4 % (11.6-14.6); RBC Distribution Width SD 39.7 fl (35.1-43.9); Red Blood Count 5.41 M/mm3 (4.6-6.2); White Blood Count 6.1 K/mm3 (4.4-11.0)
[2023-01-10 16:02] LABS: ALB/GLOB Ratio 0.9 RATIO (0.9-2.4); AST(SGOT) 21 U/L (15-37); Alanine Aminotransfer ALT/SGPT 41 U/L (16-61); Albumin, Serum 3.6 g/dL (3.2-5.0); Alkaline Phosphatase 89 U/L (45-117); Anion Gap 6 (5-15); BUN 13 mg/dL (7-18); BUN/Creat Ratio 13.1 RATIO (10-20); Calcium,Total 9.2 mg/dL (8.5-10.1); Chloride 105 mmol/L (98-107); EST Glomerular Filtration Rate 80 mL/min (>60); Est Glom Filt Rate - Afr Amer 96 mL/min (>60); Globulin 3.9 g/dL (2.2-4.2); Glucose 76 mg/dL (74-106); Potassium 3.4 mmol/L (3.5-5.1); Protein, Total 7.5 g/dL (6.4-8.2); Sodium Level 138 mmol/L (136-145)
== END | disposition home or self-care (01) ==
LOC: LAB 15:08
PROVIDERS: PCP Family Medicine; Referring Provider Internal Medicine Rheumatology; Visit Provider Internal Medicine Rheumatology
DX: M06.4 Inflammatory polyarthropathy (principal); Z79.899 Other long term (current) drug therapy; M19.041 Primary osteoarthritis, right hand; M47.892 Other spondylosis, cervical region
CPT/HCPCS: 36415; 80053; 85025

== ENCOUNTER → 2023-07-25 | Outpatient (CLI) | payer MEDICARE, SELFPAY ==
[2023-07-25 13:23] LABS: Absolute Neutrophil Count 3.4 X10^3/uL (2.0-7.7); Basophil# 0.04 X10^3/uL; Basophil% 0.7 % (0-1); Eosinophil# 0.28 X10^3/uL; Eosinophils% 4.7 % (0-5); Hematocrit 46.1 % (40-54); Hemoglobin 15.8 g/dL (13.0-16.5); Lymphocyte % 23.6 % (19-41); Mean Corp Hgb Conc 34.3 g/dL (32-36); Mean Corpuscular Hgb 30.3 pg (27.0-32.0); Mean Corpuscular Volume 88.5 fL (80-94); Mean Platelet Vol. 10.3 fl (6.2-12.0); Monocyte# 0.77 X10^3/uL; NRBC Flagged by Analyzer 0 % (0-5); Neutrophil # 3.42 X10^3/uL (2.7-7.7); Neutrophil % 57.8 % (47-70); Platelet Count 195 K/mm3 (150-450); RBC Distribution Width CV 12.8 % (11.6-14.6); RBC Distribution Width SD 41.8 fl (35.1-43.9); Red Blood Count 5.21 M/mm3 (4.6-6.2); White Blood Count 5.9 K/mm3 (4.4-11.0)
[2023-07-25 13:58] LABS: AST(SGOT) 24 U/L (15-37); Alanine Aminotransfer ALT/SGPT 35 U/L (16-61); Albumin, Serum 3.5 g/dL (3.2-5.0); Alkaline Phosphatase 76 U/L (45-117); Anion Gap 5 (5-15); BUN 20 mg/dL (7-18); BUN/Creat Ratio 21.8 RATIO (10-20); Calcium,Total 8.7 mg/dL (8.5-10.1); Chloride 107 mmol/L (98-107); Creatinine, Serum 0.92 mg/dL (0.70-1.30); EST Glomerular Filtration Rate 87 mL/min (>60); Est Glom Filt Rate - Afr Amer 106 mL/min (>60); Globulin 3.6 g/dL (2.2-4.2); Glucose 92 mg/dL (74-106); Potassium 4.2 mmol/L (3.5-5.1); Protein, Total 7.1 g/dL (6.4-8.2); Sodium Level 141 mmol/L (136-145)
== END | disposition home or self-care (01) ==
LOC: LAB 12:57
PROVIDERS: PCP Family Medicine; Referring Provider Internal Medicine Rheumatology; Visit Provider Internal Medicine Rheumatology
DX: M06.4 Inflammatory polyarthropathy (principal); Z79.899 Other long term (current) drug therapy; M19.041 Primary osteoarthritis, right hand; M47.892 Other spondylosis, cervical region; M21.41 Flat foot [pes planus] (acquired), right foot; G24.3 Spasmodic torticollis; G25.0 Essential tremor; F41.9 Anxiety disorder, unspecified; E03.9 Hypothyroidism, unspecified; E78.5 Hyperlipidemia, unspecified
CPT/HCPCS: 36415; 80053; 85025

== ENCOUNTER → 2024-01-17 | Outpatient (CLI) | payer MEDICARE, SELFPAY ==
[2024-01-17 12:22] LABS: Absolute Lymphocyte Count 1.88 X10^3/uL (0.83-4.51); Absolute Neutrophil Count 3.2 X10^3/uL (2.0-7.7); Basophil# 0.06 X10^3/uL; Basophil% 0.9 % (0-1); Eosinophil# 0.28 X10^3/uL; Eosinophils% 4.4 % (0-5); Hematocrit 47.5 % (40-54); Lymphocyte # 1.88 X10^3/ul (0.83-4.51); Lymphocyte % 29.2 % (19-41); Mean Corp Hgb Conc 33.7 g/dL (32-36); Mean Corpuscular Hgb 29.9 pg (27.0-32.0); Mean Corpuscular Volume 88.6 fL (80-94); Mean Platelet Vol. 10.4 fl (6.2-12.0); Monocyte# 0.96 X10^3/uL; Monocyte% 14.9 % (0-10); NRBC Flagged by Analyzer 0 % (0-5); Neutrophil # 3.21 X10^3/uL (2.7-7.7); Platelet Count 231 K/mm3 (150-450); RBC Distribution Width CV 12.4 % (11.6-14.6); RBC Distribution Width SD 40.6 fl (35.1-43.9); Red Blood Count 5.36 M/mm3 (4.6-6.2); White Blood Count 6.4 K/mm3 (4.4-11.0)
[2024-01-17 13:21] LABS: ALB/GLOB Ratio 1.1 RATIO (0.9-2.4); AST(SGOT) 22 U/L (15-37); Alanine Aminotransfer ALT/SGPT 31 U/L (16-61); Albumin, Serum 3.8 g/dL (3.2-5.0); Alkaline Phosphatase 82 U/L (45-117); Anion Gap 6 (5-15); BUN 10 mg/dL (7-18); BUN/Creat Ratio 11.8 RATIO (10-20); Calcium,Total 9.4 mg/dL (8.5-10.1); Chloride 107 mmol/L (98-107); Creatinine, Serum 0.85 mg/dL (0.70-1.30); EST Glomerular Filtration Rate 96 mL/min (>60); Est Glom Filt Rate - Afr Amer 116 mL/min (>60); Globulin 3.4 g/dL (2.2-4.2); Glucose 77 mg/dL (74-106); Potassium 4.1 mmol/L (3.5-5.1); Protein, Total 7.2 g/dL (6.4-8.2); Sodium Level 139 mmol/L (136-145)
== END | disposition home or self-care (01) ==
LOC: LAB 11:01
PROVIDERS: PCP Family Medicine; Referring Provider Internal Medicine Rheumatology; Visit Provider Internal Medicine Rheumatology
DX: M06.4 Inflammatory polyarthropathy (principal); Z79.899 Other long term (current) drug therapy
CPT/HCPCS: 36415; 80053; 85025

== ENCOUNTER → 2024-07-07 | Outpatient (CLI) | payer MEDICARE, SELFPAY ==
[2024-07-07 13:13] LABS: Absolute Neutrophil Count 2.9 X10^3/uL (2.0-7.7); Basophil# 0.05 X10^3/uL; Basophil% 0.9 % (0-1); Eosinophil# 0.28 X10^3/uL; Hematocrit 47.1 % (40-54); Hemoglobin 15.9 g/dL (13.0-16.5); Lymphocyte % 24.8 % (19-41); Mean Corp Hgb Conc 33.8 g/dL (32-36); Mean Corpuscular Hgb 29.8 pg (27.0-32.0); Mean Corpuscular Volume 88.2 fL (80-94); Mean Platelet Vol. 10.9 fl (6.2-12.0); Monocyte# 0.91 X10^3/uL; Monocyte% 16.1 % (0-10); NRBC Flagged by Analyzer 0 % (0-5); Neutrophil # 2.93 X10^3/uL (2.7-7.7); Neutrophil % 51.8 % (47-70); Platelet Count 206 K/mm3 (150-450); RBC Distribution Width CV 12.9 % (11.6-14.6); RBC Distribution Width SD 41.7 fl (35.1-43.9); Red Blood Count 5.34 M/mm3 (4.6-6.2); White Blood Count 5.7 K/mm3 (4.4-11.0)
[2024-07-07 13:56] LABS: ALB/GLOB Ratio 1.6 RATIO (0.9-2.4); AST(SGOT) 29 U/L (<=37); Alanine Aminotransfer ALT/SGPT 28 U/L (<=46); Albumin, Serum 4.3 g/dL (3.4-4.8); Alkaline Phosphatase 85 U/L (40-129); Anion Gap 10 (5-15); BUN 16 mg/dL (4-19); BUN/Creat Ratio 18.5 RATIO (10-20); Calcium,Total 9.4 mg/dL (7.6-11.0); Carbon Dioxide 27.5 mmol/L (21.0-32.0); Chloride 104 mmol/L (98-108); Creatinine, Serum 0.87 mg/dL (0.70-1.20); EST Glomerular Filtration Rate 94 (>60); Globulin 2.8 g/dL (2.2-4.2); Glucose 75 mg/dL (70-99); Potassium 4.2 mmol/L (3.3-5.1); Protein, Total 7.1 g/dL (5.9-8.4); Sodium Level 142 mmol/L (133-145); Total Bilirubin 0.47 mg/dL (0.00-1.30)
== END | disposition home or self-care (01) ==
LOC: LAB 12:23
PROVIDERS: PCP Family Medicine; Referring Provider Internal Medicine Rheumatology; Visit Provider Internal Medicine Rheumatology
DX: M06.4 Inflammatory polyarthropathy (principal); M19.041 Primary osteoarthritis, right hand; Z79.899 Other long term (current) drug therapy
CPT/HCPCS: 36415; 80053; 85025